=== PATIENT | female | born 1960 | race Asian ===

== ENCOUNTER → 2020-02-14 | Outpatient (CLI) | payer OTHER | LOC: YCFC.O 10:57 | PROVIDERS: ATTEND Family Medicine | DX: N39.0 Urinary tract infection, site not specified (principal) ==

== ENCOUNTER → 2020-07-19 | Outpatient (CLI) | payer SELFPAY | LOC: YCFC.O 12:37 | PROVIDERS: ATTEND Family Medicine | DX: Z00.00 Encounter for general adult medical examination without abnormal findings (principal) ==